=== PATIENT | male | born 1965 | race African-American/Black ===

== ENCOUNTER → 2017-03-19 | Day surgery (SDC) | payer OTHER ==
[~2017-03-19] MED LIST: AMITRYPTYLINE PO; AMLODIPINE BESYL5 MG PO; ATARAX PO; CELEXA20 M1; CIPRO PO; CYMBALTA PO; FLAGYL PO; FLEXERIL PO; HCTZ PO; LORTAB 7.5-5001 TAB PO; MULTIVITAMIN W/1 TAB PO; PERCOCET PO; PRINIVIL5 MG PO; REMERON PO; RITE-AID PHARMACY; TOPAMAX PO; TRAMADOL HCL50 M2 PO; [UNRECOGNIZED DRUG - REMARK]
--- NOTE | ~2017-03-19 | OR ---
Unit #: [id number] #: [id number] Patient: ANNIE ETIENNE [id number] [address] [place], [place] [address] [id number] MR#: [id number] NAME: ANNIE ETIENNE ROOM: Date of Procedure: 03/19/2017 Admission Date: 03/19/2017 Surgeon: Ruperto Painter M.D. : 1965 Attending Physician: Ruperto Painter M.D. Referring Physician: Ruperto Painter M.D. Primary Care Physician: Antonio Castro M.D. OPERATIVE REPORT PRIMARY CARE PHYSICIAN Antonio Castro M.D. PREOPERATIVE DIAGNOSIS Colorectal cancer screening in an average-risk patient. PROCEDURE PERFORMED Colonoscopy up to cecum and terminal ileum with good prep and visualization. POSTOPERATIVE DIAGNOSES Completely normal examination up to cecum. The patient did not have any polyps nor any diverticula or hemorrhoids. RECOMMENDATIONS Repeat colonoscopy in 10 years. SEDATION USED MAC. DESCRIPTION OF PROCEDURE Following detailed explanation of the potential risks and complications of a colonoscopy, namely perforation, bleeding, and complications related to sedation, the patient was brought to GI lab and laid in the left lateral decubitus position. A digital rectal examination was performed, which was normal. Lubricated tip of the Olympus video colonoscope was inserted through the anus and advanced under direct vision. The scope was advanced and passed up to sigmoid into descending colon. No diverticula noted in this area. The scope tip was then navigated all the way up to cecum with visualization of the ileocecal valve and the appendiceal orifice. Preparation was excellent with good visualization and photodocumentation was obtained. Last several inches of the terminal ileum also visualized after intubation of the ileocecal valve and appeared normal. Successive segments of the colonic mucosa were examined upon withdrawal and appeared unremarkable. There being no polyps, mass lesions, AVMs, or diverticula. The patient did not have any hemorrhoids at anal verge. The scope was then withdrawn. The patient returned to the recovery area. He tolerated the procedure without any postprocedure complications. Dictated by... Ruperto Painter M.D. Unit #: [id number] #: [id number] Patient: ANNIE ETIENNE AK/oralia TD: 03/19/2017 23:47 JOB #: [id number] CC: Antonio Castro M.D. OPERATIVE REPORT Page 1 of 1 X Ruperto Painter MD X PROCEDURE OPERATIVE NOTE
== END | disposition home or self-care (01) ==
LOC: COPS 10:57
DX: Z12.11 Encounter for screening for malignant neoplasm of colon (principal); I10 Essential (primary) hypertension; J45.909 Unspecified asthma, uncomplicated; Z79.899 Other long term (current) drug therapy; Z90.49 Acquired absence of other specified parts of digestive tract; Z98.890 Other specified postprocedural states
CPT/HCPCS: J2250